=== PATIENT | female | born 1935 | race Caucasian/White ===

== ENCOUNTER 2018-01-05 17:47 | Emergency (ER) | payer MEDICARE, OTHER, SELFPAY ==
[2018-01-05 17:49] VITALS: BP 106/48; PULSE 73; RESP 12; TEMP 37.4; O2SAT 100; BMI 27.8
--- NOTE | 2018-01-05 18:09 | NURSING ---
NO LW OR POA
--- NOTE | 2018-01-05 19:01 | CT_ITS ---
STUDY: CT LEFT HIP REASON FOR EXAM: Female, 82 years old. Status post hip replacement. Evaluate hematoma RADIATION DOSAGE (If Supplied By Facility): CTDIvol = ( 15.99 ) mGy, DLP = ( 1321.10 ) mGycm TECHNIQUE: Transaxial imaging of the left hip was performed without oral contrast, and without intravenous administration of contrast material. COMPARISON: None. FINDINGS: LEFT HIP Normal left hip joint without articular joint space narrowing. Normal left acetabulum. There is an intratrochanteric and subtrochanteric fracture of the left proximal femur with fixation screws and intramedullary atilio . There is a displaced lesser trochanteric component. There is soft tissue swelling. There is no fluid collection. There are atherosclerotic calcifications. There are skin faraz. OSSEOUS PELVIS There are nondisplaced left superior and inferior pubic rami fractures. Normal pubic symphysis. . There are cysts in the region of the left adnexa. There is diverticulosis of the colon. CT/Extremity Lower without Contra IMPRESSION: Intertrochanteric and subtrochanteric fracture of the left hip status post ORIF. There is soft tissue swelling. Electronically Signed: Dominick Watkins MD at 20:39 EDT , Service support ,
[2018-01-05 19:09] LABS: Absolute Lymphocyte Count 1.28 X10^3/ul (0.83-4.51); Absolute Neutrophil Count 7.2 X10^3/uL (2.0-7.7); Basophil# 0.02 X10^3/uL; Basophil% 0.2 % (0-1); Eosinophil# 0.06 X10^3/uL; Eosinophils% 0.6 % (0-5); Hematocrit 23.3 % (37-47); Hemoglobin 6.7 g/dl (12.0-15.0); Lymphocyte # 1.28 X10^3/ul (4.0); Lymphocyte % 12.9 % (19-41); Mean Corp Hgb Conc 28.8 g/gl (32-36); Mean Corpuscular Volume 100.9 fL (81-99); Mean Platelet Vol. 8.9 fl (6.2-12.0); Monocyte# 1.24 X10^3/uL; Monocyte% 12.5 % (0-10); Neutrophil # 7.22 X10^3/uL (2.7-7.7); Neutrophil % 72.9 % (47-70); Platelet Count 541 K/mm3 (150-450); RBC Distribution Width CV 18.8 % (11.6-14.6); RBC Distribution Width SD 64.7 fl (35.1-43.9); Red Blood Count 2.31 M/mm3 (4.2-5.4); White Blood Count 9.9 K/mm3 (4.4-11.0)
[2018-01-05 19:13] LABS: POSITIVE COUNT NO; POSITIVE DIFFERENTIAL NO; POSITIVE MORPHOLOGY NO
[2018-01-05 19:17] LABS: Anion Gap 6 (5-15); BUN 23 mg/dL (7-18); BUN/Creat Ratio 23.3 RATIO (10-20); Calcium,Total 8.5 mg/dL (8.5-10.1); Chloride 103 mmol/L (98-107); Creatinine, Serum 0.99 mg/dL (0.55-1.02); EST Glomerular Filtration Rate 57 mL/min (>60); Est Glom Filt Rate - Afr Amer 69 mL/min (>60); Estimated Creatinine Clearance 38.48 ml/min; Glucose 98 mg/dL (74-106); Potassium 3.9 mmol/L (3.5-5.1); Sodium Level 139 mmol/L (136-145)
[2018-01-05 19:24] LABS: Prothrombin Time (Protime)PT. 22.9 SECONDS (11.7-14.9)
[2018-01-05 20:11] VITALS: BP 92/42; PULSE 69; RESP 18; O2SAT 100
[2018-01-05 23:00] VITALS: BP 95/50; PULSE 66; RESP 20; TEMP 37.3; O2SAT 97
--- NOTE | 2018-01-05 23:01 | ED.DCSUM_ITS ---
- ER Visit Summary Date of Service: 01/05/18 Chief Complaint: Low hemoglobin History of Present Illness: The patient is a 82 F who presents with low hemoglobin. She had a hip fracture and underwent surgery 2 weeks ago. She had blood work this morning which was notable for hemoglobin of less than 7 so she was sent here. The patient has no complaints. He is on anticoagulation she states she was placed on this after surgery and I suspect this was for DVT prophylaxis. 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 Physical Examination: Afebrile vitals unremarkable Moist mucous membranes Heart regular rate and rhythm 3 out of 6 systolic murmur Lungs are clear Abdomen soft nontender nondistended Left leg incisions are clean dry and intact there is some ecchymosis along the thigh I do not appreciate any induration or obvious fluid collection she has brisk capillary refill and normal sensation distally Test Results: Laboratory studies notable for hemoglobin of 6.7. INR 2.0. He of the lower extremity shows no fluid collection. Emergency Department Course and Treatment: She has remained resting comfortably through her course here in emergency department. She transiently had a blood pressure in the 90s but on recheck is above 100 systolic. She will be transfused 2 units of packed red blood cells and discharged back to her nursing facility. Treatment Plan: [] Disposition: Discharge Impression: Anemia requiring transfusion This note was generated with [employer] dictation software. It may contain incorrect words, spelling, and punctuation that were not noted in review of the chart prior to signing ED Disposition - Plan for ED Patient: Chief Complaint: Abn Labs Referrals: Mickey Bourgeois [Primary Care Provider] -
--- NOTE | 2018-01-05 23:01 | ED.DEP ---
ED Disposition - Plan for ED Patient: Chief Complaint: Abn Labs Instructions: ED Anemia Type Not Specified Referrals: Mickey Bourgeois [Primary Care Provider] -
[2018-01-05 23:12] VITALS: BP 95/50; PULSE 66; RESP 18; TEMP 37.3; O2SAT 98
[2018-01-05 23:19] VITALS: BP 107/44; PULSE 65; RESP 18; TEMP 37.2; O2SAT 97
[2018-01-05 23:22] VITALS: BP 100/43; PULSE 65; RESP 18; TEMP 37
[2018-01-06 01:07] VITALS: BP 99/64; PULSE 64; RESP 24; TEMP 36.9; O2SAT 98
[2018-01-06 01:08] VITALS: BP 104/50; PULSE 65; RESP 18; TEMP 36.9; O2SAT 98
[2018-01-06 02:00] VITALS: BP 106/46; PULSE 61; RESP 18; O2SAT 97
[2018-01-06 02:10] VITALS: BP 106/46; PULSE 62; RESP 20; TEMP 36.8; O2SAT 98
[2018-01-06 03:30] VITALS: BP 114/46; PULSE 64; RESP 18; O2SAT 98
--- NOTE | 2018-01-06 03:48 | ED.RN ---
REPORT GIVEN TO [facility]
== END 2018-01-06 03:48 | disposition home or self-care (01) ==
PROVIDERS: Emergency Provider Emergency Medicine; Family Provider Family Medicine; PCP Family Medicine
DX: D64.9 Anemia, unspecified (principal); Z95.3 Presence of xenogenic heart valve; E78.00 Pure hypercholesterolemia, unspecified; E03.9 Hypothyroidism, unspecified; Z79.82 Long term (current) use of aspirin; Z79.899 Other long term (current) drug therapy
CPT/HCPCS: 36430; 73700; 80048; 85025; 85610; 86644; 86850; 86900; 86920; 86922; 99285; J7040; P9016; A4216

== ENCOUNTER → 2021-05-11 13:37 | Outpatient (CLI) | payer MEDICARE, OTHER, SELFPAY ==
--- NOTE | 2021-05-11 13:52 | CDU_ITS ---
Reason For Study: Visual loss left eye Rt. Velocities/BP Lt. Velocities/BP Prox CCA 49.4/13.5 cm/sec. Prox CCA 62.2/10.7 cm/sec. Mid CCA 64.5/13.5 cm/sec. Mid CCA 55.2/11.6 cm/sec. Dist CCA 57/13.5 cm/sec. Dist CCA 63.9/14.2 cm/sec. Prox ICA 57/11.6 cm/sec. Prox ICA 112/18.8 cm/sec. Mid ICA 89.3/16.8 cm/sec. Mid ICA 135.7/22.5 cm/sec. Dist ICA 84.9/21.2 cm/sec. Dist ICA 87.6/23.7 cm/sec. Rt. ICA/CCA = 1.57. Lt. ICA/CCA = 2.18. Prox ECA 53.2 cm/sec. Prox ECA 74.1/6.5 cm/sec. Rt. Vert. 35.2/9.9 cm/sec. Lt. Vert. 51.9/13.9 cm/sec. Right Extracranial There is homogeneous, smooth atherosclerotic plaque noted in the right common carotid artery. There is homogeneous, smooth atherosclerotic plaque noted in the right internal carotid artery. There is homogeneous, smooth atherosclerotic plaque noted in the right external carotid artery. Antegrade flow is noted in the right vertebral artery. Left Extracranial There is heterogeneous, irregular atherosclerotic plaque noted in the left common carotid artery. There is heterogeneous, irregular atherosclerotic plaque noted in the left internal carotid artery. The atherosclerotic plaque causes acoustic shadowing. There is heterogeneous, irregular atherosclerotic plaque noted in the left external carotid artery. Antegrade flow is noted in the left vertebral artery. Procedure Carotid Duplex 36120. This is a Carotid Duplex examination using B-mode, color flow and specral Doppler. Exam performed in department. VL/Carotid Duplex Ultrasound Interpretation Summary Smooth plaque within the proximal right internal carotid artery with less than 50% stenosis Less than 50% stenosis right external carotid artery Extensive irregular plaque with significant acoustic shadowing left proximal in ternal carotid artery with 50 to 69% stenosis of the left mid internal carotid artery Less than 50% stenosis left external carotid artery Patent and antegrade vertebral arteries bilaterally Ordering Physician: Jair Alva Referring Physician: Mickey Bourgeois Performed By: Sandra Doll RVT
[2021-05-11 14:38] LABS: Erythrocyte Sedimentation Rate 5 mm/hr (0-30)
[2021-05-11 15:05] LABS: CRP < 2.90 mg/L (0.0-3.0)
== END ==
PROVIDERS: PCP Family Medicine; Visit Provider Ophthalmology
DX: H53.132 Sudden visual loss, left eye (principal)
CPT/HCPCS: 36415; 85652; 86140; 93880

== ENCOUNTER → 2021-05-14 12:44 | Outpatient (CLI) | payer MEDICARE, OTHER, SELFPAY ==
--- NOTE | 2021-05-14 12:49 | ECHOD_ITS ---
Reason For Study: Sudden Visual Loss Procedure This was a 2D Doppler, Color Flow transthoracic echocardiogram. Bubble Study performed. Exam performed in department. Left Ventricle Normal LV size. Left ventricular systolic function is normal. The estimated ejection fraction is 65 %. Stage 1 diastolic dysfunction. No regional wall motion abnormalities noted. Right Ventricle Normal RV size. Normal systolic function. Atria The left atrium is mildly enlarged. Normal right atrium. Bubble contrast study negative for right to left interatrial shunt. Mitral Valve There is moderate mitral annular calcification. Mild (1+) eccentric mitral valve insufficiency. Tricuspid Valve Normal tricuspid valve. Mild (1+) tricuspid valve insufficiency. Pulmonary artery systolic pressure is 35 mmHg. Aortic Valve Peak aortic valve gradient 50 mmHg. Mean aortic valve gradient 22 mmHg. Trivial aortic valve insufficiency. Stable appearing bioprosthetic aortic valve apparatus. Pulmonic Valve Normal pulmonic valve. Great Vessels Calcified aortic root. The pulmonary artery is normal size. Normal inferior vena cava. Pericardium/Pleural No pericardial effusion. Medication 22 gauge I.V. with prn adaptor inserted into right arm. Performed a rapid injection of agitated mix of 9 cc saline and 1cc air to assess for atrial septal defect. MMode/2D Measurements & Calculations LVIDd: 3.8 cm IVSd: 0.87 cm LVOT diam: 1.7 cm LVIDs: 2.7 cm LVPWd: 1.0 cm FS: 29.7 % LVOT area: 2.3 cm2 LA dimension: 4.0 cm LAV(MOD-bp): 73.0 ml LA A4 area: 23.8 cm2 LAV(MOD-bp) Indexed: 47.0 ml/m2 LAV(MOD-sp2): 65.7 ml LAV(MOD-sp4): 76.8 ml RA A4 area: 20.0 cm2 Time Measurements MV dec time: 0.34 sec Doppler Measurements & Calculations MV E max ignacio: 118.1 cm/sec Lat Peak E' Ignacio: 9.2 cm/sec Med Peak E' Ignacio: 4.5 cm/sec MV A max ignacio: 159.1 cm/sec E/E' lat: 12.8 E/E' med: 26.5 MV E/A: 0.74 MV V2 max: 186.8 cm/sec MV P1/2t max ignacio: 122.0 cm/sec Ao V2 max: 353.0 cm/sec MV max P.0 mmHg MV P1/2t: 125.0 msec Ao max P.9 mmHg MV V2 mean: 91.4 cm/sec MV dec slope: 285.8 cm/sec2 Ao V2 mean: 215.8 cm/sec MV mean P.0 mmHg Ao mean P.7 mmHg MV V2 VTI: 51.4 cm MVA(P1/2t): 1.8 cm2 Ao V2 VTI: 78.2 cm MVA(VTI): 1.4 cm2 NAIMA(I,D): 0.90 cm2 NAIMA(V,D): 0.86 cm2 AI max ignacio: 364.3 cm/sec LV V1 max: 130.3 cm/sec SV(LVOT): 70.1 ml AI max P.1 mmHg LV V1 max P.8 mmHg AI dec slope: 226.5 cm/sec2 LV V1 mean P.4 mmHg AI P1/2t: 471.0 msec LV V1 mean: 84.1 cm/sec LV V1 VTI: 29.9 cm PA V2 max: 91.2 cm/sec TR max ignacio: 277.8 cm/sec TR max P.9 mmHg ECHO/Echo Complete Interpretation Summary Normal LV size. Left ventricular systolic function is normal. The estimated ejection fraction is 65 %. Stage 1 diastolic dysfunction. Mean aortic valve gradient 22 mmHg. Stable appearing bioprosthetic aortic valve apparatus. Bubble contrast study negative for right to left interatrial shunt. Ordering Physician: Jair Alva Referring Physician: Jair Alva Performed By: Geovany Nicole RCS
== END ==
PROVIDERS: PCP Family Medicine; Referring Provider Ophthalmology; Visit Provider Ophthalmology
DX: I51.9 Heart disease, unspecified (principal); H53.132 Sudden visual loss, left eye
CPT/HCPCS: 93306; A4216; J3490